=== PATIENT | male | born 1965 | race Caucasian/White ===

== ENCOUNTER 2016-10-13 14:03 | Emergency (ER) | payer OTHER, SELFPAY ==
--- NOTE | ~2016-10-13 | ER ---
PATIENT'S NAME: LEIDY MELÉNDEZ [facility] AGE: 51 Y [address] ROOM: [place] [address] LOCATION: [facility] ADMIT DATE: 10/13/2016 ER/Outpatient Report DISCHARGE DATE: 10/13/2016 FAMILY PHYSICIAN: PHYSICIAN, NO ATTENDING PHYSICIAN: Zarina Arias A HISTORY OF PRESENT ILLNESS: This is a 51-year-old male who came in with a chief complaint of syncope. The patient reports he passed out at 12:30, and he was found on the floor by his mother. He has had this happen several times over the last several months, and he had been seen by a security clerk about 3 months ago who, he reports, worked him up with an echocardiogram and lab work, etc. The patient denies any chest pain or shortness of breath, but states that he just feels weak and dizzy and states "he is not able to function." The patient has no reports of any vomiting, nausea, or any abdominal pain. Denies any diarrhea, constipation, or hematochezia. Does report some mild shortness of breath upon Dr. Arias's questioning, but denies it on my questioning. The patient states he drinks alcohol, but denies any alcohol use for the past week. Upon further questioning of his mother who is present during examination and questioning, agrees to this, but also goes back and forth on dates. At one point, she says it has been 2 weeks since his last drink, and at another point, she says it has been a couple of days since his last drink. The patient denies any changes to his medications and denies taking any new [id number] medications. ALLERGIES: THE PATIENT HAS NO KNOWN DRUG ALLERGIES. MEDICATION LIST: Reviewed and is documented in his medical record. PAST MEDICAL HISTORY: Hypertension and surgery on his right femur. SOCIAL HISTORY: The patient smokes a quarter to one pack of cigarettes per day, admits to alcohol use as above, and denies any drug use. REVIEW OF SYSTEMS: A complete and comprehensive review of systems was completed and is negative except as noted in the HPI above. PHYSICAL EXAMINATION: VITAL SIGNS: Height 6 feet 0 inches, weight 88.8 kg, blood pressure 138/91, pulse 86, respiratory rate 18, temperature 91.1 TM, and O2 of 99% on room air. PATIENT'S NAME: LEIDY MELÉNDEZ [facility] AGE: 51 Y [address] ROOM: [place] [address] LOCATION: ED ADMIT DATE: 10/13/2016 ER/Outpatient Report DISCHARGE DATE: 10/13/2016 FAMILY PHYSICIAN: PHYSICIAN, NO ATTENDING PHYSICIAN: Zarina Arias Rates the pain at 0/10. GENERAL: The patient is alert and oriented x4. Has mild slurring of his speech. HEENT: He is squinting his eyes often. Otherwise, HEENT shows no acute findings. He is normocephalic and atraumatic. Moist mucous membranes. No lymphadenopathy. CHEST: Regular rate and rhythm. 2/6 systolic murmur is noted at the left sternal border. CHEST: Clear to auscultation bilaterally. ABDOMEN: Soft, nontender, and nondistended. Bowel sounds are normal. EXTREMITIES: Nontender. He moves all extremities, and he has no pedal edema. SKIN: Warm, dry, and intact. NEUROLOGIC: He is independent with his ADLs. LABORATORY DATA: Workup included a CBC which showed a normal white count at 6.8, elevated hemoglobin at 18.5, and thrombocytopenia at 78. His MCV was 101.2. Electrolytes were normal except for mildly low potassium at 3.4 and mildly elevated glucose of 125. His albumin was low at 2.8. His alkaline phosphatase was elevated at 294, AST was elevated at 135, and his ALT was normal at 67. EKG showed left atrial enlargement, normal sinus rhythm. Blood alcohol level was 0.190. His troponin was negative, and the CK-MB was within normal limits. Magnesium was low at 1.5. TSH was normal at 1.95, and T4 was normal at 1. Hemoglobin A1c was elevated at 6.6. CT chest was completed per PE protocol and was negative for PE or any acute findings. CT abdomen showed fatty infiltration and wall thickening at the cecum and ascending colon. There were colon diverticula mostly in the distal portion of the colon, and there was a short segment of wall thickening in the sigmoid colon, could be diverticulitis versus focal colitis. There was also a small sliding hiatal hernia. EMERGENCY DEPARTMENT COURSE: The patient received p.o. thiamine, folic acid, magnesium oxide, and potassium chloride. He was given a 500 mL fluid bolus, and symptoms began to improve. Review of previous echo on July 10, 2016, showed a grade 2 diastolic dysfunction, mitral regurgitation, pulmonary hypertension that was mild, and an EF of 55% to 60%. IMPRESSION: 1. Syncopal episode. The patient was set up with a 48-hour Holter monitor and advised to follow up with his security clerk to discuss results versus his primary care physician. 2. New-onset diabetes, type 2. The patient was given a prescription for 500 mg of XR metformin to be taken daily. He was given enough for one months' supply. Instructed to follow up with Dr. Montoya for diabetic PATIENT'S NAME: LEIDY MELÉNDEZ [facility] AGE: 51 Y [address] ROOM: [place] [address] LOCATION: [facility] ADMIT DATE: 10/13/2016 ER/Outpatient Report DISCHARGE DATE: 10/13/2016 FAMILY PHYSICIAN: PHYSICIAN, STEPHANI ATTENDING PHYSICIAN: Zarina Arias education and to discuss further management of his current diabetes. 3. Alcohol abuse and elevated liver enzymes. The patient was instructed to quit drinking and counseled on the effects of chronic alcohol use and the current effects of his alcohol use on his body as shown with the elevated liver enzymes and thrombocytopenia. He was given oral replacement as noted above and instructed to continue to follow his values through his primary care physician. 4. Hypomagnesemia. The patient was given magnesium oxide here in the emergency room and instructed to have repeat labs within the next 3 to 5 days. 5. Hypokalemia. The patient was given 40 mEq of potassium chloride here in the emergency room and instructed to follow up in the next 2 to 3 days for repeat labs with his primary care physician. 6. The patient had a mildly elevated D-dimer with CT scan per PE protocol negative as above and wall thickening of the right side of the colon. The patient was asymptomatic and denies any diarrhea, any fever, or abdominal pain. He did have a colonoscopy 2 years ago and states that this was normal. He was recommended to monitor symptoms and to seek medical attention if he develops any signs or symptoms of infection or diverticulitis including abdominal pain, diarrhea, fevers, chills, nausea, vomiting, hematochezia, etc. He was given a 500 mL fluid bolus here in the emergency room. DISPOSITION: The patient was discharged in good condition with instructions as above. JOSH ROBERTSON MED STUDENT, RESIDENT FOR MD RAQUEL ZHANG/mike /[id number] d: 10/20/16 1434 t: 10/26/16 1839, OUTPATIENT REPORT
--- NOTE | ~2016-10-13 | ER ---
PATIENT'S NAME: ANTONY MELÉNDEZ [facility] AGE: 51 Y [address] ROOM: [place] [address] LOCATION: [facility] ADMIT DATE: 10/13/2016 ER/Outpatient Report DISCHARGE DATE: 10/13/2016 FAMILY PHYSICIAN: PHYSICIAN, NO ATTENDING PHYSICIAN: Zarina Arias Time of Arrival: 1403 hours. Time Seen: 1414 hours. IDENTIFICATION: A 51-year-old male. CHIEF COMPLAINT: Syncopal episode. HISTORY OF PRESENT ILLNESS: The patient is a 51-year-old male from [place], [place], who was evaluated by Dr. Smith, 3rd year resident. I reviewed the case, evaluated the patient in conjunction with Dr. Smith, please refer to her dictation, I do agree with her assessment and plan. I discussed the findings with Antony and his mother with, IMPRESSION: 1. Syncopal episode. Plan, 48-hour Holter monitor. Discontinue alcohol intake. 2. Diabetes mellitus, new onset. Plan, metformin 500 mg daily. Handout on diabetes. Follow up with Dr. Montoya for diabetic education and to get a glucometer. 3. Alcohol abuse and elevated liver enzymes. Alcohol level 0.190, though the patient stated that he is not actively drinking. Discussion followed regarding his drinking. The patient was given folic acid 0.8 mg here in the emergency room and thiamine 100 mg. 4. Hypomagnesemia. The patient was given magnesium oxide 800 mg p.o. here in the emergency room. 5. Hypokalemia. The patient was given KCl 10 mEq 4 tabs here in the emergency room. 6. Elevated D-dimer. No evidence of PE. 7. Fatty infiltration of the liver. 8. Wall thickening of the right side of the colon as well as the sigmoid colon. The patient is asymptomatic with no diarrhea. He said he had a colonoscopy 2 years ago, which was reportedly normal. Recommended monitor symptoms and follow up with Dr. Montoya and discussed the possible need for another colonoscopy. The patient was also given a 500 mg fluid bolus here in the emergency room. All questions were answered. PATIENT'S NAME: ANTONY MELÉNDEZ [facility] AGE: 51 Y [address] ROOM: [place] [address] LOCATION: [facility] ADMIT DATE: 10/13/2016 ER/Outpatient Report DISCHARGE DATE: 10/13/2016 FAMILY PHYSICIAN: STEPHANI LYONS ATTENDING PHYSICIAN: Zarina Arias MD HALEY ZHANG/solitariol /[id number] d: 10/13/16 2248 t: 10/14/16 1029, OUTPATIENT REPORT
--- NOTE | ~2016-10-13 | ER ---
PATIENT'S NAME: LEIDY MELÉNDEZ [facility] AGE: 51 Y [address] ROOM: [place] [address] LOCATION: [facility] ADMIT DATE: 10/13/2016 ER/Outpatient Report DISCHARGE DATE: 10/13/2016 FAMILY PHYSICIAN: PHYSICIAN, NO ATTENDING PHYSICIAN: Zarina Arias ADDENDUM: Additional medical problems include, 1. Thrombocytopenia, platelet count 78,000, no previous platelet count available for comparison, probably related to alcohol intake. Discussed with the patient the need for recheck. 2. Thrombocytosis. MD HALEY ZHANG/mike /[id number] d: 10/13/162238 t: 10/16/161941, OUTPATIENT REPORT
[2016-10-13 14:37] LABS: BASOPHIL # 0.1 K/uL (0.0-0.2); BASOPHIL % 0.7 %; EOSINOPHIL # 0.1 K/uL (0.0-0.5); EOSINOPHIL % 1.5 %; HEMATOCRIT 51.2 % (37.0-53.0); HEMOGLOBIN 18.5 g/dL (12.0-17.0); IMMATURE GRANULOCYTE % 0.1 %; LYMPHOCYTE # 1.8 K/uL (0.8-4.0); LYMPHOCYTE % 26.6 %; MCH 36.6 pg (27.0-34.0); MCHC 36.1 gm/dL (32.0-36.5); MCV 101.2 fl (83.0-98.0); MONOCYTE # 0.5 K/uL (0.0-1.0); MONOCYTE % 7.5 %; MPV 11.3 fl (9.4-12.4); NEUTROPHIL # (ANC) 4.3 K/uL (1.4-9.0); NEUTROPHIL % 63.6 %; NRBC % 0 /100WBC (0-0.00); PLATELET COUNT 78 K/uL (150-450); RBC 5.06 M/uL (4.00-6.00); RDW-CV 14.8 % (11.9-14.6); WBC 6.8 K/uL (4.0-11.0)
[2016-10-13 14:47] LABS: INR - (THERAPEUTIC) 1.08 (0.92-1.07); PROTIME 11.4 SECONDS (9.8-11.4); PTT 28 SECONDS (25-32)
[2016-10-13 14:58] LABS: ALBUMIN 2.8 gm/dL (3.5-5.0); ALK PHOS 294 IU/L (33-138); ALT 67 IU/L (12-78); ANION GAP 15.4 (10.0-19.0); AST 135 IU/L (10-40); BLOOD UREA NITROGEN 12 mg/dL (6-24); CALCIUM 7.8 mg/dL (8.5-10.5); CHLORIDE 105 mMol/L (96-110); CO2 22 mMol/L (22-32); CPK 29 IU/L (35-332); ESTIMATED GFR (MDRD EQUATION) > 60; MAGNESIUM 1.5 mg/dL (1.8-2.6); POTASSIUM 3.4 mMol/L (3.7-5.1); SODIUM 139 mMol/L (135-145); TOTAL BILIRUBIN 0.6 mg/dL (0.0-1.5); TOTAL PROTEIN 6.9 g/dL (6.0-8.4)
== END 2016-10-13 17:36 | disposition disaster alternative care site (69) ==
LOC: GMED 14:03
PROVIDERS: Family Medicine
DX: R55 Syncope and collapse (principal); E11.9 Type 2 diabetes mellitus without complications; F10.10 Alcohol abuse, uncomplicated; R74.8 Abnormal levels of other serum enzymes; E83.42 Hypomagnesemia; E87.6 Hypokalemia; R79.1 Abnormal coagulation profile; D69.6 Thrombocytopenia, unspecified; D47.3 Essential (hemorrhagic) thrombocythemia; Z79.84 Long term (current) use of oral hypoglycemic drugs
CPT/HCPCS: G0480; J7030